=== PATIENT | male | born 1955 | race Caucasian/White ===

== ENCOUNTER 2025-07-02 03:13 | Inpatient (IN) | payer MEDICARE ==
[2025-07-02 03:40] LABS: #Basophils 0.06 10x3/uL (0.0-0.2); #Eosinophils 0.26 10x3/uL (0.0-0.5); #Monocytes 0.55 10x3/uL (0.0-1.1); #Neutrophils 4.85 10x3/uL (1.5-8.4); %Basophils 0.7 % (0.0-2.0); %Eosinophils 3.0 % (0.0-6.0); %Lymphocytes 34.8 % (18.0-47.0); %Monocytes 6.2 % (0.0-10.0); %Neutrophils 55.1 % (40.0-75.0); Hematocrit 45.4 % (38.8-50.0); Hemoglobin 15.8 g/dL (13.5-17.5); Mean Corpuscular Hemoglobin 31.1 pg (27.0-33.0); Mean Corpuscular Volume 89.4 fL (81.2-95.1); Platelet Count 210 10x3/uL (150-450); Red Blood Cell (RBC) Count 5.08 10x6/uL (4.32-5.72); White Blood Cell (WBC) Count 8.81 10x3/uL (3.5-10.5)
[2025-07-02 03:58] LABS: ALT (SGPT) 23 U/L (Less than 45); AST (SGOT) 17 U/L (11-34); Albumin 4.5 g/dL (3.1-4.5); Alkaline Phosphatase 82 U/L (40-110); Anion Gap 13 mmol/L (10-20); BUN (Urea Nitrogen) 16 mg/dL (8.4-25.7); Bilirubin, Total 0.6 mg/dL (0.3-1.2); Calc. Creatinine Clearance 0 mL/min (70-130); Calcium 9.3 mg/dL (7.8-10.44); Carbon Dioxide 23 mmol/L (23-31); Chloride 109 mmol/L (98-107); Globulin 2.7 g/dL (2.4-3.5); Glucose 221 mg/dL (80-115); Lipase 20 U/L (8-78); Potassium 4.0 mmol/L (3.5-5.1); Sodium 141 mmol/L (136-145)
[2025-07-02 04:06] LABS: Troponin I 0.017 ng/mL (< 0.028)
[2025-07-02] MEDS ORDERED: Furosemide 40 MG (4 mL) VIAL ONE (04:48)
[2025-07-02] MEDS ORDERED: Dextrose 50% Abboject 50 ML SYRINGE SLOW IVP PRN (05:14)
[2025-07-02] MEDS ORDERED: Ondansetron PF 4 MG/2 ML Vial IVP PRN (05:14)
[2025-07-02] MEDS ORDERED: Senokot S 8.6-50 MG TAB PO PRN (05:14)
[2025-07-02] MEDS ORDERED: Glucagon 1 MG/ML KIT IM PRN (05:14)
[2025-07-02] MEDS ORDERED: Guaifenesin DM 100-10/5 ML UDCUP PO PRN (05:14)
[2025-07-02] MEDS ORDERED: Calcium Carbonate 500 MG ChewTAB PO PRN (05:14)
[2025-07-02] MEDS ORDERED: Acetaminophen 325 MG TAB PO PRN (05:14)
[2025-07-02] MEDS ORDERED: Nitroglycerin 0.4 MG TAB (25 Tab Bottle) SL PRN (05:18)
[2025-07-02 08:18] LABS: Troponin I 0.016 ng/mL (< 0.028)
[2025-07-02] MEDS ORDERED: Aspirin Chewable 81 MG TAB ONE (09:11)
[2025-07-02] MEDS ORDERED: Famotidine 20 MG TAB ONE (09:11)
[2025-07-02] MEDS ORDERED: Losartan 25 MG TAB ONE (09:11)
[2025-07-02] MEDS ORDERED: Carvedilol 6.25 MG TAB ONE (09:12)
[2025-07-02] MEDS: Carvedilol 6.25 MG TAB PO SCH (09:38)
[2025-07-02] MEDS: Losartan 25 MG TAB PO SCH (09:38)
[2025-07-02] MEDS: Famotidine 20 MG TAB PO SCH (09:38)
[2025-07-02] MEDS: Aspirin 81 mg Enteric Coated Tablet PO SCH (09:39)
[2025-07-02] MEDS: Dapagliflozin Propanediol 10 MG TAB PO SCH (09:39)
[2025-07-02 12:11] LABS: Troponin I 0.011 ng/mL (< 0.028)
[2025-07-02] MEDS: Furosemide 40 MG (4 mL) VIAL SLOW IVP SCH (13:42)
[2025-07-02] MEDS: Enoxaparin 40 MG (0.4 mL) SYRINGE SC SCH (19:33)
[2025-07-02] MEDS: Melatonin 3 MG TAB PO PRN (23:49)
[2025-07-03 06:03] LABS: Anion Gap 13 mmol/L (10-20); BUN (Urea Nitrogen) 17 mg/dL (8.4-25.7); Calc. Creatinine Clearance 86 mL/min (70-130); Calcium 9.2 mg/dL (7.8-10.44); Carbon Dioxide 29 mmol/L (23-31); Chloride 104 mmol/L (98-107); Glucose 122 mg/dL (80-115); Magnesium 2.0 mg/dL (1.6-2.6); Potassium 3.8 mmol/L (3.5-5.1); Sodium 142 mmol/L (136-145)
[2025-07-03 10:01] VITALS: BMI 33.0
[2025-07-03 11:37] VITALS: BP 92/56; TEMP 97.6
[2025-07-04] MEDS ORDERED: Furosemide 40 MG TAB PO SCH (09:00)
== END 2025-07-03 11:28 | disposition home or self-care (01) | DRG 291 ==
LOC: CSHERS 03:13 → CSHERHOLD 04:55 → CSHTELE 12:16
PROVIDERS: ADMIT Student in an Organized Health Care Education/Training Program; ATTEND Student in an Organized Health Care Education/Training Program
DX: I11.0 Hypertensive heart disease with heart failure (principal); I50.23 Acute on chronic systolic (congestive) heart failure; J96.01 Acute respiratory failure with hypoxia; I24.89 Other forms of acute ischemic heart disease; I42.8 Other cardiomyopathies; E11.9 Type 2 diabetes mellitus without complications; M54.2 Cervicalgia; F17.210 Nicotine dependence, cigarettes, uncomplicated; Z95.810 Presence of automatic (implantable) cardiac defibrillator; Z98.890 Other specified postprocedural states; Z98.1 Arthrodesis status; Z88.5 Allergy status to narcotic agent; Z88.8 Allergy status to other drugs, medicaments and biological substances
CPT/HCPCS: 36415; 36416; 71045; 80048; 80053; 83690; 83735; 83880; 84443; 84484; 85025; 93005; 93306; 94760; 96374; J1650; J1940